=== PATIENT | male | born 2000 | race African-American/Black ===

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

== ENCOUNTER 2021-02-22 10:01 | Emergency (ER) | payer BC ==
[2021-02-22 10:12] VITALS: BP 167/84; PULSE 63; TEMP 97; BMI 38.0
== END 2021-02-22 11:05 | disposition home or self-care (01) ==
LOC: JERFT 10:01
DX: T24.511A Corrosion of first degree of right thigh, initial encounter (principal)
CPT/HCPCS: 99282-25